=== PATIENT | female | born 1995 | race African-American/Black ===

== ENCOUNTER 2018-11-08 10:27 | Emergency (ER) | payer MEDICAID ==
[~2018-11-08] VITALS: Ht 170.2 cm; Wt 129.3 kg
[2018-11-08 10:35] VITALS: BP 115/82
== END 2018-11-08 14:44 | disposition home or self-care (01) ==
LOC: ER 10:27
DX: S86.912A Strain of unspecified muscle(s) and tendon(s) at lower leg level, left leg, initial encounter (principal); X50.9XXA Other and unspecified overexertion or strenuous movements or postures, initial encounter; Y93.89 Activity, other specified; Y92.89 Other specified places as the place of occurrence of the external cause; Y99.8 Other external cause status
CPT/HCPCS: 29505; 73562